=== PATIENT | female | born 1990 ===

== ENCOUNTER 2025-03-14 13:17 | Outpatient (CLI) | payer OTHER, BC, SELFPAY | END 2025-03-14 13:18 | disposition home or self-care (01) | LOC: FRMREF 13:20 | PROVIDERS: PCP Family Medicine; Visit Provider Family Medicine | DX: Z00.00 Encounter for general adult medical examination without abnormal findings (principal); Z13.6 Encounter for screening for cardiovascular disorders; N92.6 Irregular menstruation, unspecified | CPT/HCPCS: 80053; 80061; 84703 ==